=== PATIENT | male | born 2005 | race African-American/Black ===

== ENCOUNTER 2024-12-23 20:14 | Emergency (ER) | payer SELFPAY ==
[2024-12-23] MEDS: Ibuprofen 600 MG Tab PO ONE (20:38)
[2024-12-23] MEDS: Acetaminophen 500 MG Tab PO ONE (20:39)
[2024-12-23] MEDS: Dexamethasone 4 MG Tab PO ONE (20:43)
== END 2024-12-23 22:27 | disposition home or self-care (01) ==
LOC: MW.ED 20:14
DX: B34.9 Viral infection, unspecified (principal); Z79.899 Other long term (current) drug therapy
CPT/HCPCS: 71045; 87428; 99285; A9270; J8540; 99283

== ENCOUNTER 2025-06-05 22:17 | Emergency (ER) | payer SELFPAY | END 2025-06-05 23:40 | disposition home or self-care (01) | LOC: MW.ED 22:17 | DX: K04.7 Periapical abscess without sinus (principal); F17.200 Nicotine dependence, unspecified, uncomplicated; Z79.899 Other long term (current) drug therapy | CPT/HCPCS: 99282; A9270; 99283 ==